=== PATIENT | female | born 1985 | race Caucasian/White ===

== ENCOUNTER 2024-02-24 17:16 | Inpatient (IN) ==
[2024-02-24] MEDS ORDERED: Lidocaine 1% VIAL 10 MG/ML 30 ML VIAL INJ PRN (19:09)
[2024-02-24] MEDS: Lactated Ringers 1000 ml BAG 1,000 ML IV SCH (19:30)
[2024-02-24 19:53] LABS: ABS Basophils 0.1 10^3/uL (0.0-0.1); ABS Lymphocytes 1.9 10^3/uL (1.0-4.8); ABS Monocytes 0.9 10^3/uL (0.0-0.9); ABS Neutrophils 12.8 10^3/uL (1.5-7.6); ABS Nucleated RBC 0.02 10^3/ul; Eosinophil % 0.2 %; Hematocrit 34.7 % (35-45); Hemoglobin 11.5 g/dL (11.5-14.3); Lymphocyte % 12.4 %; Mean Corpuscular Hemoglobin 26.8 pg (27-33); Mean Corpuscular Hgb Conc 33.2 g/dL (31-36); Mean Corpuscular Volume 80.8 fL (80-97); Mean Platelet Volume 9.6 fL (7.5-11.2); Nucleated Red Blood Cells % 0.1 %/100WBC (0.0-0.8); Platelet Count 228 10^3/uL (150-450); Red Cell Distribution Width 13.3 % (12-17); White Blood Count 15.7 10^3/uL (3.8-11.8)
[2024-02-24] MEDS ORDERED: fentaNYL 100 mcg/2 ml 50 MCG/ML VIAL ONE (20:03)
[2024-02-24] MEDS: Lactated Ringers 1000 ml BAG 1,000 ML IV ONE (20:05)
[2024-02-24] MEDS: Lidocaine 2% JELLY 6 ML Topical TOPICAL ONE (20:20)
[2024-02-24 20:26] LABS: Urine Benzodiazepine Screen None Detected (None Detect); Urine Cannabinoids Screen None Detected (None Detect); Urine Opiates Screen None Detected (None Detect)
[2024-02-24] MEDS: Oxytocin in LR 20,000 MILLI.UNIT/1,000 ML BAG IV SCH ×2 (21:00→21:37)
[2024-02-24] MEDS ORDERED: Glycerin ADULT 2.4 gm SUPP PR PRN (21:24)
[2024-02-24] MEDS ORDERED: Witch Hazel PAD JAR TOPICAL PRN (21:24)
[2024-02-24] MEDS: Buffered Lidocaine 1% SYRIN 1 ml INTRADERM ONE (21:37)
[2024-02-24] MEDS ORDERED: Lactated Ringers 1000 ml BAG 1,000 ML IV SCH (22:00)
[2024-02-25 07:14] LABS: ABS Lymphocytes 1.9 10^3/uL (1.0-4.8); ABS Monocytes 1.3 10^3/uL (0.0-0.9); ABS Neutrophils 12.5 10^3/uL (1.5-7.6); ABS Nucleated RBC 0.01 10^3/ul; Eosinophil % 0.1 %; Hematocrit 25.5 % (35-45); Hemoglobin 8.5 g/dL (11.5-14.3); Mean Corpuscular Hemoglobin 27.3 pg (27-33); Mean Corpuscular Hgb Conc 33.3 g/dL (31-36); Mean Platelet Volume 8.9 fL (7.5-11.2); Nucleated Red Blood Cells % 0.1 %/100WBC (0.0-0.8); Platelet Count 202 10^3/uL (150-450); Red Blood Count 3.11 10^6/uL (3.63-4.92); Red Cell Distribution Width 13.4 % (12-17); White Blood Count 15.7 10^3/uL (3.8-11.8)
[2024-02-25] MEDS ORDERED: LEXAPRO 5 MG PO SCH (11:15)
[2024-02-25] MEDS: Iron Sucrose 200 MG in NS 0.9% 100 ml BAG 100 ML IVPB ONE (12:37)
[2024-02-26 06:34] LABS: ABS Eosinophils 0.2 10^3/uL (0.0-0.5); ABS Lymphocytes 2.6 10^3/uL (1.0-4.8); ABS Neutrophils 10.1 10^3/uL (1.5-7.6); ABS Nucleated RBC 0.01 10^3/ul; Eosinophil % 1.2 %; Hematocrit 25.4 % (35-45); Hemoglobin 8.4 g/dL (11.5-14.3); Lymphocyte % 18.6 %; Mean Corpuscular Hemoglobin 27.3 pg (27-33); Mean Corpuscular Hgb Conc 33.3 g/dL (31-36); Mean Corpuscular Volume 81.9 fL (80-97); Mean Platelet Volume 8.5 fL (7.5-11.2); Nucleated Red Blood Cells % 0.1 %/100WBC (0.0-0.8); Platelet Count 223 10^3/uL (150-450); White Blood Count 13.9 10^3/uL (3.8-11.8)
[2024-02-26 08:34] VITALS: BP 99/66
[2024-02-26] MEDS: Dibucaine 1% OINT 28.35 GM TUBE PR PRN (09:26)
== END 2024-02-26 13:41 | disposition home or self-care (01) | DRG 560 ==
LOC: MCHOBOUT 17:16 → MCHOB 19:13
PROVIDERS: ADMIT Advanced Practice Midwife; ATTEND Advanced Practice Midwife